=== PATIENT | female | born 2000 | race Caucasian/White ===

== ENCOUNTER 2024-11-03 13:21 | Oncology outpatient (recurring) (ONCR) | payer MEDICAID, SELFPAY ==
[2024-11-03 13:36] VITALS: BP 120/78; PULSE 106; RESP 14; TEMP 36.2; O2SAT 99
[2024-11-03] MEDS: rho(d) immune globulin 1,500 unit Syringe 1500 UNIT IM (13:43)
[2024-11-03 14:04] VITALS: BP 120/74; PULSE 114; RESP 14; TEMP 36.6; O2SAT 98
== END 2024-11-16 23:59 | disposition home or self-care (01) ==
PROVIDERS: PCP Nurse Practitioner; Visit Provider Family Medicine
DX: Z67.11 Type A blood, Rh negative (principal); Z79.899 Other long term (current) drug therapy
CPT/HCPCS: 96372; J2790

== ENCOUNTER 2024-11-11 06:04 | Outpatient (CLI) | payer MEDICAID, SELFPAY ==
--- NOTE | 2024-11-11 06:30 | US_ITS ---
WS: [id number] RIGHT UPPER QUADRANT ULTRASOUND HISTORY: ABD PAIN COMPARISON: None available. Liver: 16.9 cm in length. Normal size liver. Hypoechoic mass towards the diaphragmatic surface measur es 0.9 x 1.0 x 0.8 cm. Most typical for benign hemangioma. No intrahepatic dilatation. Portal Vein: Normal hepatopetal flow with monophasic waveform. Gallbladder: Normally distended gallbladder with no stones or wall thickening. CBD: 0.4 cm Pancreas: Completely obscured by bowel gas. Right kidney: 11.8 cm in length. Mildly dilated renal pelvis. No calyceal dilatation. Aorta and IVC: Unremarkable abdominal aorta and IVC. No ascites. US/US gall bladder [id number] IMPRESSION: 1. Normal gallbladder. 2. Mild RIGHT hydronephrosis. Mild dilatation of the renal pelvis. May be due to the gravid uterus.
== END 2024-11-11 06:05 | disposition home or self-care (01) ==
PROVIDERS: PCP Nurse Practitioner; Visit Provider Family Medicine
DX: R10.9 Unspecified abdominal pain (principal)
CPT/HCPCS: 76705

== ENCOUNTER 2025-01-11 17:01 | Outpatient (CLI) | payer MEDICAID, SELFPAY ==
[2025-01-11 17:01] VITALS: BMI 32.5
[2025-01-11 17:19] VITALS: BP 127/84; PULSE 96
[2025-01-11 17:33] VITALS: BP 124/81; PULSE 90
[2025-01-11 17:49] VITALS: BP 116/75; PULSE 93
[2025-01-11 18:05] VITALS: BP 121/80; PULSE 92
[2025-01-11 18:10] VITALS: BP 120/80; PULSE 92; O2SAT 98
== END 2025-01-11 18:10 | disposition home or self-care (01) ==
LOC: OPOB 17:04 → OBGYN 17:05
PROVIDERS: PCP Nurse Practitioner; Visit Provider Family Medicine
DX: O36.8190 Decreased fetal movements, unspecified trimester, not applicable or unspecified (principal); Z3A.00 Weeks of gestation of pregnancy not specified
CPT/HCPCS: 59025; 99211

== ENCOUNTER 2025-01-16 21:42 | Inpatient (IN) | payer MEDICAID, SELFPAY ==
[2025-01-16 20:41] VITALS: BMI 32.9
[2025-01-16 20:45] VITALS: BP 130/75; PULSE 90
[2025-01-16 21:01] VITALS: BP 128/74; PULSE 78
[2025-01-16 21:16] VITALS: BP 120/72; PULSE 96
[2025-01-16 21:28] VITALS: BMI 32.9
[2025-01-16 21:30] VITALS: BP 124/82; PULSE 100
[2025-01-16 22:01] LABS: Basophils % 0.3 %; Eosinophils # 0.1 10^3/uL (0.0-0.8); Eosinophils % 0.8 %; Hematocrit 36.5 % (36-47); Lymphocytes # 1.9 10^3/uL (0.8-4.8); Mean Corpuscular HGB Conc 32.6 g/dL (30-55); Mean Corpuscular Hemoglobin 26.9 pg (27-33); Mean Corpuscular Volume 82.4 fl (85-98); Mean Platelet Volume 11.7 fL (7.4-10.4); Monocytes # 0.6 10^3/uL (0.2-0.9); Neutrophils # 9.14 10^3/uL (1.8-7.7); Neutrophils % 77.6 %; Nucleated Red Blood Cells % 0 %; Platelet Count 314 10^3/cmm (157-399); Red Blood Count 4.43 10^6/uL (3.85-5.65); Red Cell Distribution Width 13.7 % (12.1-15.1); White Blood Count 11.77 10^3/uL (3.29-11.43)
[2025-01-16 22:39] VITALS: BP 117/73; PULSE 93
[2025-01-16] MEDS: sodium chloride 0.9% 1,000 ML 999 ML IV (23:19)
[2025-01-16] MEDS: ampicillin 2,000 MG in sodium chloride 0.9% (plus) 50 ML 100 MG IV (23:23)
[2025-01-16 23:24] VITALS: RESP 18; TEMP 37.3
[2025-01-17] VITALS (78 sets, daily range): BP systolic 95–139; BP diastolic 53–80; PULSE 72–134; RESP 16; TEMP 36.9–37.9; O2SAT 98–99
[2025-01-17] MEDS: fentaNYL 50 mcg/mL INJ 2mL IVP (01:30)
--- NOTE | 2025-01-17 03:30 | P.ANESUD_ITS ---
Pre-Anesthetic Update Pre-Anesthetic Assessment: Date of Surgery/Procedure: 01/17/25 Preop Ruth Ann gnosis: IUP Proposed Procedure: epidrual Last Intake: 1800 solids Labs Last 48hrs: Short CBC 01/16/25 Range/Units 21:40 WBC 11.77 H (3.29-11.43) 10^ 3/uL Hgb 11.90 (11.27-16.99) g/ dL Hct 36.5 (36-47) % MCV 82.4 L (85-98) fl Plt Count 314 (157-399) 10^3/c mm Neut % (Auto) 77.6 % Neut # (Auto) 9.14 H (1.8-7.7) 10^3/u L Blood Bank 01/16/25 21:40 Blood Type A Negative Rho(D) Type Rh negative Antibody Screen Positive Vitals: Temperature 99.1 F 01/16/25 23:24 Temperature Source Oral 01/16/25 23:24 Pulse Rate 103 H 01/17/25 03:45 Pulse Rhythm Regular 01/16/25 21:28 Pulse Strength 2+ Slightly Dimin ished 01/16/25 21:28 Respiratory Rate 18 01/16/25 23:24 Respiratory Effort Spontaneous, Non- Labored 01/16/25 21:28 Respiratory Depth Normal 01/16/25 21:28 Respiratory Patter n Normal 01/16/25 21:28 Blood Pressure 116/63 01/17/25 03:45 Pulse Oximetry 99 01/17/25 03:44 Oxygen Delivery Me thod Room Air 01/16/25 23:24 Exam: Pre-Anes Outpt Exam: alert and oriented x 3 Cardiac Studies: No Data to Display
[2025-01-17] MEDS: ampicillin 1,000 MG in sodium chloride 0.9% (plus) 50 ML 100 MG IV ×4 (03:41→16:05)
[2025-01-17] MEDS: sodium chloride 0.9% 1,000 ML 125 ML IV (03:42)
--- NOTE | 2025-01-17 03:47 | ANES.PROC ---
Anesthesia Procedures Procedure/Date: 01/17/25 Epidural: Time Out Performed: Yes Consents Signed: Procedure Consent Consent: from patient, risks and benefits reviewed and patient agrees to proceed Lumbar Level: L3-L4 Epidural position: sitting Epidural procedure: sterile prep of area, 1% lidocaine to numb the area, 18 g needle, negative for paresthesia passed, test dose given, 1.5% xylocaine 1:200k epi, placed PCEA, no systemic response, sterile dressing applied, L.U.D. no apparent complications and 0.2% Ropiavacaine @ mls/hr (10) Additional Comments: MISSY at 4.5. negative heme/CSF upon aspiration. taped at 12 at skin. tolerated well.
[2025-01-17] MEDS: ROPivacaine syringe 100 MG/50 ML SYRINGE 10 MG EPIDURAL ×5 (03:48→15:45)
[2025-01-17] MEDS: ondansetron 2 mg/ML SDV 2 mL 4 MG IVP ×2 (05:36→17:47)
[2025-01-17] MEDS: alum-mag-hydroxide-sime 30 mL UDC PO (09:17)
[2025-01-17] MEDS: dextrose 5%-lactated ringers 1,000 ML 125 ML IV (12:39)
[2025-01-17] MEDS: acetaminophen 325 mg Tablet 650 MG PO (17:15)
--- NOTE | 2025-01-17 18:21 | PM.OPHPUD ---
Labor & Delivery H&P Update Date of Procedure: January 17, 2025 Date H&P Performed: 01/13/25 Changes to previous documentation: Active labor with cervical change Admission Diagnosis: 24-year-old 1 at 40 weeks presenting in active labor Preop diagnosis: 40-week primigravida female Planned procedure: Spontaneous vaginal delivery Other information: The patient is a 40-week and 4-day primigravida female who presented to the hospital after having contractions consistently for several hours. Upon presentation to the hospital she was found to make cervical change. Her otherwise been unremarkable. Her blood type was A-. Her antibody screen was negative. Her drug screen was negative. She is group B strep positive. She is rubella immune. The remainder of her infectious disease profile is within normal limits. She passed her glucose screen. Related Problem List Diagnoses (1) 40 weeks gestation of : A&P Assessment and plan (1) 40 weeks gestation of : I anticipate routine labor and vaginal delivery. Status: Acute PDMP PDMP Reviewed: Not Reviewed
[2025-01-17] MEDS: oxytocin 30 UNIT/500 ML BAG 600 UNIT IV (18:53)
--- NOTE | 2025-01-17 19:18 | P.PCNOB_ITS ---
Delivery Note: Date of delivery: January 17, 2025 Pre-delivery diagnoses: 24-year-old 40-week 1 female in active labor Post-delivery diagnoses: Status post spontaneous vaginal delivery Procedure: Spontaneous vaginal delivery Delivering Physician: Jens Long Estimated blood loss (mL): 150 Pre-Delivery Course: The patient presented to the hospital in active labor. An amniotomy was performed. An epidural was placed. She progressed complete without difficulty. Delivery: DELIVERY: The patient progressed to complete without difficulty. She delivered a male with a weight of 8 pounds 8 ounces with Apgars of 8, 9. The baby was delivered from the DIEGO position and placed on the mother's abdomen. The cord was then clamped and cut. There was no nuchal cord. There was no meconium. The placenta and 3 vessel cord were delivered intact shortly thereafter. The perineum and vaginal vault were carefully examined. A first-degree posterior m idline vaginal laceration was noted. It was repaired with 3-0 Vicryl. Both the mother and the baby were in stable condition. Post-Delivery Status: Good A&P Assessment and plan (1) Spontaneous vaginal delivery: I anticipate routine care. PDMP PDMP Reviewed: Not Reviewed Coding Level of Care Code Acute Code for Chg Fwd Diagnoses Spontaneous vaginal delivery O80
[2025-01-17] MEDS: benzocaine-menthol 78 gm Canister 1 SPRAY TOPICAL (20:34)
[2025-01-17] MEDS: ibuprofen 800 mg tablet PO (20:34)
[2025-01-17] MEDS: HYDROcodone-acetaminophen 5-325 mg Tablet PO (20:42)
[2025-01-18 00:45] VITALS: BP 107/68; PULSE 86; RESP 16; TEMP 36.9; O2SAT 99
[2025-01-18] MEDS: HYDROcodone-acetaminophen 5-325 mg Tablet PO (03:27)
[2025-01-18 05:33] VITALS: BP 115/74; PULSE 74; RESP 16; TEMP 37; O2SAT 97
[2025-01-18 06:51] LABS: Hematocrit 28.5 % (36-47); Mean Corpuscular HGB Conc 31.9 g/dL (30-55); Mean Corpuscular Hemoglobin 26.5 pg (27-33); Mean Corpuscular Volume 82.8 fl (85-98); Mean Platelet Volume 11.3 fL (7.4-10.4); Platelet Count 232 10^3/cmm (157-399); Red Blood Count 3.44 10^6/uL (3.85-5.65); Red Cell Distribution Width 13.8 % (12.1-15.1); White Blood Count 18.17 10^3/uL (3.29-11.43)
--- NOTE | 2025-01-18 08:00 | ANE.PACU2 ---
Inpatient post-anesthesia follow up: Airway intact: Yes Vital signs: Temperature 98.0 F Pulse Rate 90 Respiratory Rate 16 Blood Pressure 120/76 Pulse Oximetry 98 Oxygen Delivery Me thod Room Air Oxygen Flow Rate Fraction of Inspir ed Oxygen Hydration adequate: Yes Nausea and vomiting: No Pain level: 1 Mental status: Baseline Epidural Start/End: Epidural Start Date: 01/17/25 Epidural Start Time: 03:33 Epidural End Date: 01/17/25 Epidural End Time: 19:00
--- NOTE | 2025-01-18 08:08 | P.DS_ITS ---
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 An epidural was placed. Cytotec and Pitocin augmentation were performed. She progressed to complete and had an unremarkable delivery of a healthy appearing male infant. Her course was also unremarkable. She breast-fed well. Her bleeding was within normal limits. Her pain was well-controlled. Information Peripartum Data: Delivery Method: Vaginal Physical Exam Narrative: The patient is alert. She appears comfortable. Her heart has a regular rate and rhythm with no murmurs appreciated. Lungs are clear to auscultation bilaterally. Her fundus is firm and below the umbilicus. Urinary Catheter Management: Arriaga Latex: Cath Placed During This Visit: yes Reason for Continuing Indwelling Catheter: Other Urinary Catheter Date of Insertion: 01/17/25 Urinary Catheter Time of Insertion: 05:19 Discharge Data Studies Completed and Pending Pending at discharge Category Date Time Status Antibody Identification Routine Lab 01/16/25 21:40 Results Complete Crossmatch Routine Lab 01/16/25 21:40 Results Rho D Immune Globulin Routine Lab 01/16/25 21:40 Results Type and Screen Routine Lab 01/16/25 21:40 Results Laboratory Results WBC 18.17 10^3/uL (3.29-11.43) H 01/18/25 06:45 RBC 3.44 10^6/uL (3.85-5.65) L 01/18/25 06:45 Hgb 9.10 g/dL (11.27-16.99) L 01/18/25 06:45 Hct 28.5 % (36-47) L 01/18/25 06:45 MCV 82.8 fl (85-98) L 01/18/25 06:45 MCH 26.5 pg (27-33) L 01/18/25 06:45 MCHC 31.9 g/dL (30-55) 01/18/25 06:45 RDW 13.8 % (12.1-15.1) 01/18/25 06:45 Plt Count 232 10^3/cmm (157-399) 01/18/25 06:45 MPV 11.3 fL (7.4-10.4) H 01/18/25 06:45 Neut % (Auto) 77.6 % 01/16/25 21:40 Lymph % (Auto) 16.0 % 01/16/25 21:40 Bee % (Auto) 5.0 % 01/16/25 21:40 Eos % (Auto) 0.8 % 01/16/25 21:40 Baso % (Auto) 0.3 % 01/16/25 21:40 Neut # (Auto) 9.14 10^3/uL (1.8-7.7) H 01/16/25 21:40 Lymph # (Auto) 1.9 10^3/uL (0.8-4.8) 01/16/25 21:40 Bee # (Auto) 0.6 10^3/uL (0.2-0.9) 01/16/25 21:40 Eos # (Auto) 0.1 10^3/uL (0.0-0.8) 01/16/25 21:40 Baso # (Auto) 0.0 10^3/uL (0.0-0.1) 01/16/25 21:40 Nucleated RBC % (auto) 0 % 01/16/25 21:40 Nucleated RBCs # 0.0 /100WBC 01/16/25 21:40 Blood Type A Negative 01/16/25 21:40 Rho(D) Type Rh negative 01/16/25 21:40 Antibody Screen Positive 01/16/25 21:40 Antibody Identification Anti-D 01/16/25 21:40 Screen Negative (Negative) 01/18/25 06:45 Vitals Last Vital Signs Temp 98.6 F 01/18/25 05:33 Pulse 74 01/18/25 05:33 Resp 16 01/18/25 05:33 BP 115/74 01/18/25 05:33 Pulse Ox 97 01/18/25 05:33 O2 Del Method Room Air 01/18/25 00:45 Results Labs OB ([facility]): Blood Type A Negative 01/16/25 Antibody Screen Positive 01/16/25 Hct 28.5 % (36-47) L 01/18/25 Hgb 9.10 g/dL (11.27-16.99) L 01/18/25 Rho(D) Type Rh negative 01/16/25 Plt Count 232 10^3/cmm (157-399) 01/18/25 Discharge Plan Discharge Patient Disposition: Home Condition: Stable Prescriptions: New ibuprofen 800 mg Tablet 800 mg PO TID Qty: 45 0RF Continued Prenatabs Rx 29 mg iron- 1 mg Tablet 1 tab PO DAILY Discharge Orders: Discharge Order (Routine); Ordered 01/18/25 Ordered By: Jens Long Referrals: Jens Long MD [Physician] - 6 Weeks Discharge Diet: Usual diet Discharge Activity: Limit activity as instructed Patient Instructions: Opioid Safety Discharge Attestations [employer]INTE[employer] TECHNICIAN Time Spent in Discharge Care*: less than 30 min Coding Level of Care Code Acute Code for Chg Fwd Diagnoses Spontaneous vaginal delivery O80
[2025-01-18] MEDS: PRENATAL VIT NO.130/IRON/FOLIC 1 EACH TABLET PO (10:08)
[2025-01-18] MEDS: ibuprofen 800 mg tablet PO ×3 (10:08→20:11)
[2025-01-18 15:15] VITALS: BP 121/77; PULSE 78; RESP 16; O2SAT 97
[2025-01-18 17:02] VITALS: BP 121/77; PULSE 78; RESP 16
[2025-01-18 20:53] VITALS: BP 120/76; PULSE 90; RESP 16; TEMP 36.7; O2SAT 98
== END 2025-01-18 21:05 | disposition home or self-care (01) | DRG 807 ==
LOC: OPOB 21:42 → OBGYN 21:42
PROVIDERS: Admitting Provider Family Medicine; PCP Nurse Practitioner; Visit Provider Family Medicine
DX: O48.0 Post-term pregnancy (principal); Z37.0 Single live birth; Z3A.40 40 weeks gestation of pregnancy; O99.824 Streptococcus B carrier state complicating childbirth; O70.0 First degree perineal laceration during delivery
CPT/HCPCS: 36415; 51702; 59025; 59409; 80503; 85025; 85027; 85460; 86850; 86870; 86900; 90384; 96374; 96376; 99211; J0290; J2405; J2590; J2795; J3010; J7030; J7121